=== PATIENT | female | born 1940 | race Caucasian/White ===

== ENCOUNTER 2016-11-27 15:16 | Emergency (ER) | payer OTHER ==
[~2016-11-27] VITALS: Ht 152.4 cm; Wt 63.5 kg
[~2016-11-27 15:16] MED LIST: PAR20T PO; TETR12.5 PO
[2016-11-27] MEDS ORDERED: SODIUM CHLORIDE 0.9% 500 ML IVB ONE (15:43)
[2016-11-27] MEDS ORDERED: LORazepam 2MG/ML-1ML VIAL IV ONE ×2 (16:15→23:30)
[2016-11-27 16:31] LABS: Basophils # (auto) 0.1 uL; DEFINITIVE VIEW TRANSMISSION; Eosinophils # (auto) 0.6 uL
[2016-11-27 16:37] LABS: Basophils % (auto) 0.5 % (0.0-2.0); Eosinophils % (auto) 3.6 % (0.0-7.0); Hematocrit 41.9 % (36.0-46.0); Hemoglobin 13.3 g/dL (12.2-16.2); Lymphocytes % (auto) 12.5 % (10.0-50.0); Mean Corpuscular Hgb Conc. 31.7 g/dL (32.0-36.0); Mean Corpuscular Volume 91.4 fL (80.0-100.0); Mean Platelet Volume 8.1 fL (7.4-10.4); Monocytes # (auto) 1.4 uL; Monocytes % (auto) 9.1 % (0.0-12.0); Neutrophils # (auto) 11.7 uL; Neutrophils % (auto) 74.3 % (37.0-80.0); Red Cell Distribution Width 13.9 % (11.6-16.0); White Blood Cell 15.8 10^3/uL (4.4-10.8)
[2016-11-27 16:45] LABS: INR 1.05 (0.9-1.15); Partial Thromboplastin Time 29.3 sec (22.64-33.71); Prothrombin Time 10.8 sec (9.37-12.3)
[2016-11-27 16:49] LABS: Platelet Count (auto) 808 10^3/uL (140-450)
[2016-11-27 16:56] LABS: Albumin 3.1 g/dL (3.4-5.0); BUN/Creatinine Ratio 29.6; Bilirubin, Total 0.4 mg/dL (0.2-1.0); Calcium 9.1 mg/dL (8.5-10.1); Magnesium 2.6 mg/dL (1.6-2.6); Potassium 4.1 mmol/L (3.5-5.1); Total Protein 8.4 g/dL (6.4-8.2)
[2016-11-27] MEDS ORDERED: cefTRIAXone 1GM/50ML D5W 50 ML IV ONE ×2 (17:40→17:45)
[2016-11-27] MEDS ORDERED: AZITHROMYCIN 500MG/D5W 250ML 250 ML IV ONE (17:45)
[2016-11-27 17:49] LABS: Platelet Estimate Markedly Increased
[2016-11-27 18:08] LABS: Urine Bilirubin Negative (Negative); Urine Blood Negative /uL (Negative); Urine Color Yellow (Yellow); Urine Glucose Normal (Normal); Urine Ketone Negative (Negative); Urine Mucus FEW (None Seen); Urine RBC <1 /hpf (0 - 4); Urine Squamous Epithelial Cell FEW /hpf (<5); Urine pH 5.5 (5.0-8.0)
[2016-11-27 18:13] LABS: Urine Nitrite POSITIVE (Negative)
[2016-11-28 01:05] VITALS: BP 116/79
== END 2016-11-28 01:48 | disposition short-term general hospital (02) ==
LOC: EDUNIT# 15:16 → EDBD 15:16 → ER 15:22
DX: I62.00 Nontraumatic subdural hemorrhage, unspecified (principal); J18.9 Pneumonia, unspecified organism; N39.0 Urinary tract infection, site not specified; D47.3 Essential (hemorrhagic) thrombocythemia; R94.5 Abnormal results of liver function studies; Z98.890 Other specified postprocedural states
CPT/HCPCS: 36415; 70450; 71010; 80053; 81001; 82962; 83605; 83735; 84484; 85025; 85610; 85730; 87040; 87086; 87088; 87186; 93005; 94761; 96374; 99285; J0456; J0696; J2060; J7040

== ENCOUNTER 2017-02-02 23:12 | Inpatient (IN) | payer OTHER ==
[~2017-02-02] VITALS: Ht 152.4 cm; Wt 44.9 kg
[2017-02-03] VITALS (7 sets, daily range): BP systolic 84–115; BP diastolic 51–57
[2017-02-03] LABS: Basophils # (auto) 0.2 uL; Basophils % (auto) 1.2 % (0.0-2.0); Eosinophils # (auto) 0.2 uL; Eosinophils % (auto) 1.7 % (0.0-7.0); Hematocrit 37.8 % (36.0-46.0); Hemoglobin 12.8 g/dL (12.2-16.2); Lymphocytes # (auto) 2.6 uL; Lymphocytes % (auto) 18.4 % (10.0-50.0); Mean Corpuscular Hemoglobin 29.9 pg (28.0-32.0); Mean Corpuscular Hgb Conc. 33.7 g/dL (32.0-36.0); Mean Corpuscular Volume 88.6 fL (80.0-100.0); Mean Platelet Volume 7.9 fL (7.4-10.4); Monocytes # (auto) 0.8 uL; Monocytes % (auto) 5.6 % (0.0-12.0); Neutrophils # (auto) 10.6 uL; Neutrophils % (auto) 73.1 % (37.0-80.0); Platelet Count (auto) 397 10^3/uL (140-450); Red Cell Distribution Width 13.6 % (11.6-16.0); SUSPECT VIEW TRANSMISSION; White Blood Cell 14.4 10^3/uL (4.4-10.8)
[2017-02-03 00:16] LABS: Anion Gap 8 (5-15); BUN/Creatinine Ratio 11.5; Blood Urea Nitrogen 10 mg/dL (7-18); Calcium 8.3 mg/dL (8.5-10.1); Carbon Dioxide 28 mmol/L (21-32); Chloride 108 mmol/L (98-107); GFR African American 82 mL/min; GFR Non-African American 68 mL/min; Glucose 99 mg/dL (74-106); Sodium 144 mmol/L (136-145)
[2017-02-03 02:14] LABS: B-Type Natriuretic Peptide 12.1 pg/mL (0-100)
[2017-02-03 03:04] LABS: Urine RBC None Seen /hpf (0 - 4)
[2017-02-03 03:13] LABS: Urine Bilirubin Negative (Negative); Urine Blood Negative /uL (Negative); Urine Color Yellow (Yellow); Urine Glucose Normal (Normal); Urine Ketone Negative (Negative); Urine Nitrite Negative (Negative); Urine Urobilinogen Normal (Negative); Urine pH 6.5 (5.0-8.0)
[2017-02-03] MEDS ORDERED: LEVOFLOXACIN 750MG 150 ML IV ONE (04:45)
[2017-02-03] MEDS ORDERED: ALBUTEROL SULF 2.5 MG/0.5ML(0.5%) NEB SOLN NEB ONE (04:45)
[2017-02-03] MEDS ORDERED: IPRATROPIUM BROM 0.5 MG/2.5ML INH SOL NEB ONE (04:45)
[2017-02-03] MEDS ORDERED: SODIUM CHLORIDE 0.9% 250 ML IV ONE (06:15)
[2017-02-03] MEDS: SODIUM CHLORIDE 0.9% 1,000 ML IV SCH ×2 (07:13→21:20)
[2017-02-03] MEDS ORDERED: ACETAMINOPHEN 500 MG TAB PO PRN (07:15)
[2017-02-03] MEDS ORDERED: LORazepam 2MG/ML-1ML VIAL IV PRN (07:15)
[2017-02-03] MEDS ORDERED: NITROGLYCERIN 0.4 MG SL TAB SL PRN (07:15)
[2017-02-03] MEDS ORDERED: HYDROcodone-ACET 5/325MG TAB PO PRN (07:15)
[2017-02-03] MEDS ORDERED: PROCHLORPERAZINE EDISYLATE 5 MG/ML 2ML VIAL IV PRN (07:15)
[2017-02-03] MEDS ORDERED: MORPHINE SULF INJ 2 MG/ML SYRINGE 1ML IV PRN ×2 (07:15)
[2017-02-03] MEDS ORDERED: LACTULOSE 20Gm/30ML SOLN PO PRN (07:15)
[2017-02-03] MEDS ORDERED: ALBUTEROL SULF 2.5 MG/0.5ML(0.5%) NEB SOLN NEB PRN (07:15)
[2017-02-03] MEDS: methylPREDNISolone SOD SUCC 40 MG/ML VL IV SCH ×3 (07:58→20:22)
[2017-02-03] MEDS: IPRATROPIUM BROM 0.5 MG/2.5ML INH SOL NEB SCH ×2 (10:53→18:00)
[2017-02-03] MEDS: ALBUTEROL SULF 2.5 MG/0.5ML(0.5%) NEB SOLN NEB SCH ×2 (10:53→18:00)
[2017-02-03] MEDS: PARoxetine 20 MG TAB PO SCH (10:54)
[2017-02-03] MEDS: ENOXAPARIN SOD 40 MG/0.4 ML SYRINGE SC SCH (10:54)
[2017-02-03] MEDS ORDERED: PNEUMOCOCCAL VACC POLYS 25 MCG/0.5 ML VIAL IM ONE (17:45)
[2017-02-03] MEDS ORDERED: TETRABENAZINE 12.5 MG PO SCH (22:00)
[2017-02-04] MEDS: methylPREDNISolone SOD SUCC 40 MG/ML VL IV SCH ×4 (02:00→20:55)
[2017-02-04] MEDS: LEVOFLOXACIN 500MG 100 ML IV SCH (05:17)
[2017-02-04 05:52] LABS: Basophils # (auto) 0 uL; Basophils % (auto) 0.3 % (0.0-2.0); Eosinophils # (auto) 0 uL; Eosinophils % (auto) 0.1 % (0.0-7.0); Hemoglobin 10.8 g/dL (12.2-16.2); Lymphocytes # (auto) 2.4 uL; Lymphocytes % (auto) 16.6 % (10.0-50.0); Mean Corpuscular Hemoglobin 29.5 pg (28.0-32.0); Mean Corpuscular Hgb Conc. 32.8 g/dL (32.0-36.0); Mean Corpuscular Volume 90.1 fL (80.0-100.0); Mean Platelet Volume 8.3 fL (7.4-10.4); Monocytes # (auto) 1.1 uL; Monocytes % (auto) 7.4 % (0.0-12.0); Neutrophils % (auto) 75.6 % (37.0-80.0); Platelet Count (auto) 369 10^3/uL (140-450); Red Cell Distribution Width 14.2 % (11.6-16.0); White Blood Cell 14.6 10^3/uL (4.4-10.8)
[2017-02-04 05:59] VITALS: BP 108/55
[2017-02-04] MEDS ORDERED: TETRABENAZINE 12.5 MG PO SCH (07:00)
[2017-02-04] MEDS: ALBUTEROL SULF 2.5 MG/0.5ML(0.5%) NEB SOLN NEB SCH ×4 (07:09→19:13)
[2017-02-04] MEDS: IPRATROPIUM BROM 0.5 MG/2.5ML INH SOL NEB SCH ×4 (07:10→19:13)
[2017-02-04 08:00] VITALS: BP 108/55
[2017-02-04 09:00] VITALS: BP 97/50
[2017-02-04] MEDS: SODIUM CHLORIDE 0.9% 1,000 ML IV SCH ×2 (09:47→23:15)
[2017-02-04] MEDS: ENOXAPARIN SOD 40 MG/0.4 ML SYRINGE SC SCH (10:09)
[2017-02-04] MEDS: PARoxetine 20 MG TAB PO SCH (10:09)
[2017-02-04] MEDS ORDERED: SODIUM CHLORIDE 0.9% 2,000 ML IV ONE (12:15)
[2017-02-04 15:30] VITALS: BP 72/44
[2017-02-04 18:11] LABS: Basophils # (auto) 0 uL; Basophils % (auto) 0.1 % (0.0-2.0); Eosinophils # (auto) 0 uL; Hematocrit 34.5 % (36.0-46.0); Hemoglobin 11.3 g/dL (12.2-16.2); Lymphocytes % (auto) 8.3 % (10.0-50.0); Mean Corpuscular Hemoglobin 29.5 pg (28.0-32.0); Mean Corpuscular Hgb Conc. 32.6 g/dL (32.0-36.0); Mean Corpuscular Volume 90.6 fL (80.0-100.0); Mean Platelet Volume 8.2 fL (7.4-10.4); Monocytes # (auto) 0.2 uL; Monocytes % (auto) 1.9 % (0.0-12.0); Neutrophils # (auto) 10.9 uL; Neutrophils % (auto) 89.7 % (37.0-80.0); Platelet Count (auto) 379 10^3/uL (140-450); Red Cell Distribution Width 14.3 % (11.6-16.0); White Blood Cell 12.1 10^3/uL (4.4-10.8)
[2017-02-04 18:16] VITALS: BP_SYST 46
[2017-02-04 18:35] LABS: Albumin 2.4 g/dL (3.4-5.0); BUN/Creatinine Ratio 7.8; Calcium 7.9 mg/dL (8.5-10.1); Potassium 3.9 mmol/L (3.5-5.1)
[2017-02-04 18:44] LABS: Bilirubin, Total 0.1 mg/dL (0.2-1.0); Total Protein 5.8 g/dL (6.4-8.2)
[2017-02-04 22:00] VITALS: BP 87/38
[2017-02-05] MEDS: IPRATROPIUM BROM 0.5 MG/2.5ML INH SOL NEB SCH ×4 (00:56→18:37)
[2017-02-05] MEDS: ALBUTEROL SULF 2.5 MG/0.5ML(0.5%) NEB SOLN NEB SCH ×4 (00:56→18:37)
[2017-02-05] MEDS: methylPREDNISolone SOD SUCC 40 MG/ML VL IV SCH ×4 (01:54→20:23)
[2017-02-05] MEDS: LEVOFLOXACIN 500MG 100 ML IV SCH (04:35)
[2017-02-05 05:00] VITALS: BP 136/65
[2017-02-05 09:45] VITALS: BP_SYST 69; BP_SYST 91; BP_DIAS 38; BP_DIAS 53
[2017-02-05] MEDS: PARoxetine 20 MG TAB PO SCH (10:17)
[2017-02-05] MEDS: ENOXAPARIN SOD 40 MG/0.4 ML SYRINGE SC SCH (10:18)
[2017-02-05] MEDS ORDERED: DEXTROSE (50%) 50ML SYRG IV PRN (11:45)
[2017-02-05] MEDS: MUPIROCIN 2% OINT 22GM EACHNOSTRI SCH ×2 (11:50→22:22)
[2017-02-05] MEDS: Boost Glucose Control 8 Ounces PO SCH ×3 (12:00→22:23)
[2017-02-05] MEDS: SODIUM CHLORIDE 0.9% 1,000 ML IV SCH (12:33)
[2017-02-05 13:38] VITALS: BP 106/57
[2017-02-05 16:43] VITALS: BP 119/52
[2017-02-05] MEDS: InsuLIN REG 1unit/0.01ml Soln (100units/ml) SC SCH ×2 (17:00→22:00)
[2017-02-05] MEDS: ACCU-CHEK COMFORT CURVE STRIP VI SCH ×2 (17:16→22:23)
[2017-02-05 21:15] VITALS: BP 110/59
[2017-02-06] VITALS (7 sets, daily range): BP systolic 103–141; BP diastolic 55–77
[2017-02-06] MEDS: SODIUM CHLORIDE 0.9% 1,000 ML IV SCH ×2 (01:53→16:33)
[2017-02-06] MEDS: methylPREDNISolone SOD SUCC 40 MG/ML VL IV SCH ×4 (02:11→20:29)
[2017-02-06] MEDS: LEVOFLOXACIN 500MG 100 ML IV SCH (05:03)
[2017-02-06 06:05] LABS: Basophils # (auto) 0 uL; Eosinophils # (auto) 0 uL; Hemoglobin 11.6 g/dL (12.2-16.2); Lymphocytes # (auto) 0.7 uL; Lymphocytes % (auto) 5.7 % (10.0-50.0); Mean Corpuscular Hemoglobin 29.5 pg (28.0-32.0); Mean Corpuscular Hgb Conc. 33.1 g/dL (32.0-36.0); Mean Corpuscular Volume 88.9 fL (80.0-100.0); Monocytes # (auto) 0.2 uL; Monocytes % (auto) 1.7 % (0.0-12.0); Neutrophils # (auto) 12.1 uL; Neutrophils % (auto) 92.6 % (37.0-80.0); Platelet Count (auto) 408 10^3/uL (140-450); Red Cell Distribution Width 14.3 % (11.6-16.0); White Blood Cell 13.1 10^3/uL (4.4-10.8)
[2017-02-06] MEDS: ALBUTEROL SULF 2.5 MG/0.5ML(0.5%) NEB SOLN NEB SCH ×4 (06:11→18:42)
[2017-02-06] MEDS: IPRATROPIUM BROM 0.5 MG/2.5ML INH SOL NEB SCH ×4 (06:11→18:42)
[2017-02-06] MEDS: Boost Glucose Control 8 Ounces PO SCH ×4 (06:30→22:33)
[2017-02-06] MEDS: InsuLIN REG 1unit/0.01ml Soln (100units/ml) SC SCH ×4 (06:30→22:34)
[2017-02-06] MEDS: ACCU-CHEK COMFORT CURVE STRIP VI SCH ×4 (06:30→22:33)
[2017-02-06 06:46] LABS: Albumin 2.6 g/dL (3.4-5.0); BUN/Creatinine Ratio 8.2; Bilirubin, Total 0.2 mg/dL (0.2-1.0); Calcium 8.4 mg/dL (8.5-10.1); Total Protein 6.1 g/dL (6.4-8.2)
[2017-02-06] MEDS: PARoxetine 20 MG TAB PO SCH (10:01)
[2017-02-06] MEDS: MUPIROCIN 2% OINT 22GM EACHNOSTRI SCH ×2 (10:16→22:33)
[2017-02-06] MEDS: ENOXAPARIN SOD 40 MG/0.4 ML SYRINGE SC SCH (10:16)
[2017-02-06] MEDS: DOXYCYCLINE HYC 100MG/250ML 250 ML IV SCH (16:29)
[2017-02-07] MEDS: ALBUTEROL SULF 2.5 MG/0.5ML(0.5%) NEB SOLN NEB SCH ×4 (00:35→18:44)
[2017-02-07] MEDS: IPRATROPIUM BROM 0.5 MG/2.5ML INH SOL NEB SCH ×4 (00:35→18:44)
[2017-02-07] MEDS: DOXYCYCLINE HYC 100MG/250ML 250 ML IV SCH ×2 (03:30→13:47)
[2017-02-07] MEDS: methylPREDNISolone SOD SUCC 40 MG/ML VL IV SCH ×4 (03:30→21:19)
[2017-02-07] MEDS: SODIUM CHLORIDE 0.9% 1,000 ML IV SCH ×2 (04:33→17:16)
[2017-02-07 05:00] VITALS: BP 142/69
[2017-02-07] MEDS: Boost Glucose Control 8 Ounces PO SCH ×4 (06:00→22:00)
[2017-02-07 06:15] LABS: Basophils # (auto) 0 uL; Eosinophils # (auto) 0 uL; Hematocrit 34.6 % (36.0-46.0); Hemoglobin 11.4 g/dL (12.2-16.2); Lymphocytes # (auto) 0.8 uL; Lymphocytes % (auto) 6.6 % (10.0-50.0); Mean Corpuscular Hemoglobin 29.6 pg (28.0-32.0); Mean Corpuscular Volume 89.8 fL (80.0-100.0); Mean Platelet Volume 8.5 fL (7.4-10.4); Monocytes # (auto) 0.6 uL; Monocytes % (auto) 4.7 % (0.0-12.0); Neutrophils % (auto) 88.7 % (37.0-80.0); Platelet Count (auto) 393 10^3/uL (140-450); Red Cell Distribution Width 14.6 % (11.6-16.0); White Blood Cell 12.4 10^3/uL (4.4-10.8)
[2017-02-07 06:31] LABS: Potassium 3.7 mmol/L (3.5-5.1)
[2017-02-07 06:38] LABS: Albumin 2.5 g/dL (3.4-5.0); BUN/Creatinine Ratio 16.9; Calcium 8.2 mg/dL (8.5-10.1)
[2017-02-07] MEDS: InsuLIN REG 1unit/0.01ml Soln (100units/ml) SC SCH ×4 (06:39→22:00)
[2017-02-07] MEDS: ACCU-CHEK COMFORT CURVE STRIP VI SCH ×4 (06:39→22:00)
[2017-02-07 06:41] LABS: Bilirubin, Total 0.2 mg/dL (0.2-1.0); Total Protein 5.9 g/dL (6.4-8.2)
[2017-02-07 07:30] VITALS: BP 108/55
[2017-02-07 07:42] VITALS: BP 101/59
[2017-02-07] MEDS: ENOXAPARIN SOD 40 MG/0.4 ML SYRINGE SC SCH (09:42)
[2017-02-07] MEDS: PARoxetine 20 MG TAB PO SCH (09:42)
[2017-02-07] MEDS: MUPIROCIN 2% OINT 22GM EACHNOSTRI SCH ×2 (09:43→21:40)
[2017-02-07 10:00] VITALS: BP 103/61
[2017-02-07 17:17] VITALS: BP 147/73
[2017-02-07 21:37] VITALS: BP 100/54
[2017-02-07] MEDS ORDERED: TETRABENAZINE 25 MG PO SCH (22:00)
[2017-02-08] MEDS: IPRATROPIUM BROM 0.5 MG/2.5ML INH SOL NEB SCH ×3 (00:45→11:43)
[2017-02-08] MEDS: ALBUTEROL SULF 2.5 MG/0.5ML(0.5%) NEB SOLN NEB SCH ×3 (00:45→11:43)
[2017-02-08] MEDS: methylPREDNISolone SOD SUCC 40 MG/ML VL IV SCH ×2 (02:03→07:50)
[2017-02-08] MEDS: DOXYCYCLINE HYC 100MG/250ML 250 ML IV SCH (03:16)
[2017-02-08 04:22] VITALS: BP 127/69
[2017-02-08 05:52] LABS: Basophils # (auto) 0 uL; Eosinophils # (auto) 0 uL; Hematocrit 33.9 % (36.0-46.0); Hemoglobin 11.2 g/dL (12.2-16.2); Lymphocytes # (auto) 0.6 uL; Mean Corpuscular Hemoglobin 29.5 pg (28.0-32.0); Mean Corpuscular Hgb Conc. 32.9 g/dL (32.0-36.0); Mean Corpuscular Volume 89.7 fL (80.0-100.0); Mean Platelet Volume 8.7 fL (7.4-10.4); Monocytes # (auto) 0.2 uL; Neutrophils # (auto) 7.2 uL; Platelet Count (auto) 399 10^3/uL (140-450); Red Cell Distribution Width 14.5 % (11.6-16.0); White Blood Cell 8.1 10^3/uL (4.4-10.8)
[2017-02-08] MEDS: Boost Glucose Control 8 Ounces PO SCH ×2 (06:00→13:02)
[2017-02-08 06:17] LABS: Albumin 2.4 g/dL (3.4-5.0); BUN/Creatinine Ratio 21.1; Bilirubin, Total 0.2 mg/dL (0.2-1.0); Calcium 8.2 mg/dL (8.5-10.1); Potassium 4.3 mmol/L (3.5-5.1); Total Protein 5.5 g/dL (6.4-8.2)
[2017-02-08] MEDS: ACCU-CHEK COMFORT CURVE STRIP VI SCH ×2 (06:36→13:02)
[2017-02-08] MEDS: InsuLIN REG 1unit/0.01ml Soln (100units/ml) SC SCH ×2 (06:37→13:02)
[2017-02-08] MEDS: SODIUM CHLORIDE 0.9% 1,000 ML IV SCH (07:31)
[2017-02-08 09:00] VITALS: BP 116/68
[2017-02-08] MEDS: PARoxetine 20 MG TAB PO SCH ×2 (10:00→10:13)
[2017-02-08] MEDS: MUPIROCIN 2% OINT 22GM EACHNOSTRI SCH (10:13)
[2017-02-08 10:22] VITALS: BP 116/68
[2017-02-08 10:31] VITALS: BP 116/68
== END 2017-02-08 14:10 | disposition home or self-care (01) | DRG 190 ==
LOC: ER 23:12 → TELE 23:13 → TELE-WESTW 02-03 10:12
PROVIDERS: ADMIT Internal Medicine; ATTEND Internal Medicine
PROC: 3E0234Z Introduction of Serum, Toxoid and Vaccine into Muscle, Percutaneous Approach (ICD-10-PCS; principal; 2017-02-03)
DX: J44.0 Chronic obstructive pulmonary disease with (acute) lower respiratory infection (principal); E43 Unspecified severe protein-calorie malnutrition; R47.01 Aphasia; G10 Huntington's disease; Z68.1 Body mass index [BMI] 19.9 or less, adult; J44.1 Chronic obstructive pulmonary disease with (acute) exacerbation; J20.9 Acute bronchitis, unspecified; Z77.22 Contact with and (suspected) exposure to environmental tobacco smoke (acute) (chronic); I95.2 Hypotension due to drugs; E74.39 Other disorders of intestinal carbohydrate absorption; J45.909 Unspecified asthma, uncomplicated; N18.2 Chronic kidney disease, stage 2 (mild); E86.0 Dehydration; Z88.1 Allergy status to other antibiotic agents; Z82.0 Family history of epilepsy and other diseases of the nervous system; Z87.440 Personal history of urinary (tract) infections; Z23 Encounter for immunization; Z91.81 History of falling
CPT/HCPCS: 36415; 51702; 71010; 80048; 80053; 81001; 82962; 83036; 83605; 83880; 84484; 85025; 87040; 87081; 87400; 92610; 93005; 94640; 96374; 97110; 97116; 97530; J1956; J3490

== ENCOUNTER 2017-08-21 14:52 | Inpatient (IN) | payer OTHER ==
[~2017-08-21] VITALS: Ht 152.4 cm; Wt 36.2 kg
[2017-08-21] MEDS ORDERED: SODIUM CHLORIDE 0.9% 1,000 ML IV ONE (19:00)
[2017-08-21 19:11] LABS: Albumin 2.6 g/dL (3.4-5.0); Calcium 8.2 mg/dL (8.5-10.1); Magnesium 2.2 mg/dL (1.6-2.6)
[2017-08-21 19:14] LABS: Bilirubin, Total 0.3 mg/dL (0.2-1.0); Total Protein 6.1 g/dL (6.4-8.2)
[2017-08-21 19:29] LABS: Basophils # (auto) 0 uL; Basophils % (auto) 0.5 % (0.0-2.0); Eosinophils # (auto) 0.1 uL; Eosinophils % (auto) 1.5 % (0.0-7.0); Hematocrit 41.1 % (36.0-46.0); Hemoglobin 13.7 g/dL (12.2-16.2); Lymphocytes # (auto) 3.6 uL; Lymphocytes % (auto) 40.1 % (10.0-50.0); Mean Corpuscular Hemoglobin 30.1 pg (28.0-32.0); Mean Corpuscular Hgb Conc. 33.5 g/dL (32.0-36.0); Mean Corpuscular Volume 89.9 fL (80.0-100.0); Mean Platelet Volume 8.1 fL (6.9-10.8); Monocytes # (auto) 0.8 uL; Neutrophils # (auto) 4.4 uL; Neutrophils % (auto) 48.9 % (37.0-80.0); Nucleated Red Blood Cells % 0.3 %; Platelet Count (auto) 286 10^3/uL (140-450); Red Cell Distribution Width 13.7 % (11.8-14.3)
[2017-08-21 19:38] LABS: INR 0.94 (0.9-1.15); Partial Thromboplastin Time 26.7 sec (22.64-33.71); Prothrombin Time 10.3 sec (9.37-12.3)
[2017-08-21] MEDS ORDERED: PPN PER PHARMACY 0 ML IV SCH (21:30)
[2017-08-21] MEDS ORDERED: ONDANSETRON HCL 4 MG/2 ML VIAL IV PRN (21:30)
[2017-08-21] MEDS ORDERED: AMINO ACID INFUSION IN D10W 1,000 ML IV NR (22:30)
[2017-08-21] MEDS ORDERED: DEXTROSE (50%) 50ML SYRG IV SCH (22:30)
[2017-08-21 23:03] VITALS: BP 95/64
[2017-08-21 23:15] VITALS: BP 95/64
[2017-08-22] MEDS: ACCU-CHEK COMFORT CURVE STRIP VI SCH ×4 (00:02→17:04)
[2017-08-22 05:00] VITALS: BP 104/86
[2017-08-22] MEDS: InsuLIN REG 1unit/0.01ml Soln (100units/ml) SC SCH ×4 (05:51→17:04)
[2017-08-22 06:24] LABS: Basophils # (auto) 0 uL; Basophils % (auto) 0.5 % (0.0-2.0); Eosinophils # (auto) 0.2 uL; Eosinophils % (auto) 2.7 % (0.0-7.0); Hematocrit 39.8 % (36.0-46.0); Hemoglobin 13.4 g/dL (12.2-16.2); Lymphocytes # (auto) 3.8 uL; Lymphocytes % (auto) 42.9 % (10.0-50.0); Mean Corpuscular Hemoglobin 30.6 pg (28.0-32.0); Mean Corpuscular Hgb Conc. 33.8 g/dL (32.0-36.0); Mean Corpuscular Volume 90.6 fL (80.0-100.0); Mean Platelet Volume 7.9 fL (6.9-10.8); Monocytes # (auto) 0.8 uL; Monocytes % (auto) 9.3 % (0.0-12.0); Neutrophils # (auto) 3.9 uL; Neutrophils % (auto) 44.6 % (37.0-80.0); Nucleated Red Blood Cells % 0.1 %; Platelet Count (auto) 321 10^3/uL (140-450); Red Cell Distribution Width 13.8 % (11.8-14.3); White Blood Cell 8.8 10^3/uL (4.4-10.8)
[2017-08-22 06:38] LABS: Albumin 2.5 g/dL (3.4-5.0); Calcium 8.4 mg/dL (8.5-10.1); Magnesium 2.3 mg/dL (1.6-2.6); Potassium 3.6 mmol/L (3.5-5.1)
[2017-08-22 06:40] LABS: BUN/Creatinine Ratio 16.7
[2017-08-22 06:43] LABS: Bilirubin, Total 0.3 mg/dL (0.2-1.0); Phosphorus 2.8 mg/dL (2.5-4.90)
[2017-08-22 08:39] VITALS: BP 100/63
[2017-08-22] MEDS: ENOXAPARIN SOD 30 MG/0.3 ML SYRINGE SC SCH (11:03)
[2017-08-22] MEDS: PANTOPRAZOLE 40 MG/10 ML VIAL IV SCH (11:03)
[2017-08-22 13:06] VITALS: BP 99/62
[2017-08-22] MEDS: SODIUM CHLORIDE 0.9% 1,000 ML IV SCH (14:15)
[2017-08-22 16:54] VITALS: BP 98/61
[2017-08-22] MEDS ORDERED: PPN PER PHARMACY IV NR ×8 (20:00)
[2017-08-22 22:00] VITALS: BP 107/75
[2017-08-23 05:00] VITALS: BP 110/52
[2017-08-23] MEDS: InsuLIN REG 1unit/0.01ml Soln (100units/ml) SC SCH ×4 (05:56→18:00)
[2017-08-23] MEDS: ACCU-CHEK COMFORT CURVE STRIP VI SCH ×4 (05:56→18:13)
[2017-08-23 06:48] LABS: Albumin 2.7 g/dL (3.4-5.0); BUN/Creatinine Ratio 28.6; Bilirubin, Total 0.2 mg/dL (0.2-1.0); Calcium 8.2 mg/dL (8.5-10.1); Magnesium 1.9 mg/dL (1.6-2.6); Phosphorus 2.6 mg/dL (2.5-4.90); Potassium 3.4 mmol/L (3.5-5.1); Total Protein 6.3 g/dL (6.4-8.2)
[2017-08-23] MEDS ORDERED: NALOXONE HCL 0.4 MG/ML VIAL ONE (09:10)
[2017-08-23] MEDS ORDERED: FLUMAZENIL 0.1 MG/ML INJ 10ML MDV IV ONE (09:10)
[2017-08-23] MEDS ORDERED: SODIUM CHLORIDE LOCK 10 ML ONE (09:10)
[2017-08-23] MEDS ORDERED: MIDAZOLAM HCL 5 MG/ML-1ML VIAL ONE (09:10)
[2017-08-23] MEDS ORDERED: LIDOCAINE VISCOUS 2% 15ML UD ONE (09:10)
[2017-08-23] MEDS ORDERED: diphenhdrAMINE HCL 50 MG/1 ML VL ONE (09:11)
[2017-08-23 09:12] VITALS: BP 114/74
[2017-08-23] MEDS: PANTOPRAZOLE 40 MG/10 ML VIAL IV SCH (09:37)
[2017-08-23] MEDS: ENOXAPARIN SOD 30 MG/0.3 ML SYRINGE SC SCH (09:37)
[2017-08-23] MEDS ORDERED: POTASSIUM PHOSP 22MEQ(15MMOLE) in NS 100 ML IV ONE (10:15)
[2017-08-23] MEDS ORDERED: POTASSIUM CHL 20MEQ/100ML 100 ML IV ONE (11:30)
[2017-08-23] MEDS ORDERED: MAGNESIUM SULFATE 1GM/100ML 100 ML IV ONE (11:30)
[2017-08-23] MEDS: fentaNYL CITRATE 100 MCG/2 ML VL ONE ×2 (11:57→12:01)
[2017-08-23] MEDS ORDERED: ceFAZolin 1GM/50ML 50 ML IV ONE (12:10)
[2017-08-23] MEDS: SODIUM CHLORIDE 0.9% 1,000 ML IV SCH (16:10)
[2017-08-23 16:54] VITALS: BP 98/58
[2017-08-23] MEDS ORDERED: PPN PER PHARMACY IV NR ×10 (20:00)
[2017-08-23 22:58] VITALS: BP 105/71
[2017-08-24 05:06] VITALS: BP 109/57
[2017-08-24] MEDS: InsuLIN REG 1unit/0.01ml Soln (100units/ml) SC SCH ×3 (06:00→12:00)
[2017-08-24] MEDS: ACCU-CHEK COMFORT CURVE STRIP VI SCH ×3 (06:00→12:00)
[2017-08-24] MEDS: SODIUM CHLORIDE 0.9% 1,000 ML IV SCH (06:15)
[2017-08-24 07:36] LABS: Basophils # (auto) 0.1 uL; Basophils % (auto) 0.5 % (0.0-2.0); Eosinophils # (auto) 0.2 uL; Hematocrit 38.7 % (36.0-46.0); Hemoglobin 12.8 g/dL (12.2-16.2); Lymphocytes # (auto) 2.8 uL; Lymphocytes % (auto) 23.1 % (10.0-50.0); Mean Corpuscular Hemoglobin 30.2 pg (28.0-32.0); Mean Corpuscular Volume 91.4 fL (80.0-100.0); Mean Platelet Volume 7.8 fL (6.9-10.8); Monocytes # (auto) 1.1 uL; Monocytes % (auto) 8.6 % (0.0-12.0); Neutrophils # (auto) 8.1 uL; Neutrophils % (auto) 65.8 % (37.0-80.0); Nucleated Red Blood Cells % 1.5 %; Platelet Count (auto) 302 10^3/uL (140-450); Red Cell Distribution Width 13.7 % (11.8-14.3); White Blood Cell 12.3 10^3/uL (4.4-10.8)
[2017-08-24 07:57] LABS: Albumin 2.4 g/dL (3.4-5.0); BUN/Creatinine Ratio 25.6; Bilirubin, Total 0.2 mg/dL (0.2-1.0); Calcium 8.2 mg/dL (8.5-10.1); Magnesium 2.6 mg/dL (1.6-2.6); Phosphorus 2.9 mg/dL (2.5-4.90); Potassium 4.2 mmol/L (3.5-5.1)
[2017-08-24 09:00] VITALS: BP 104/79
[2017-08-24] MEDS: PANTOPRAZOLE 40 MG/10 ML VIAL IV SCH (10:38)
[2017-08-24] MEDS: ENOXAPARIN SOD 30 MG/0.3 ML SYRINGE SC SCH (10:38)
[2017-08-24] MEDS ORDERED: Isosource 1.5 Cal 1 Liter GT SCH (12:30)
[2017-08-24 13:00] VITALS: BP 115/58
[2017-08-24 17:11] VITALS: BP 100/55
[2017-08-24 17:49] LABS: Urine Bilirubin Negative (Negative); Urine Blood Negative /uL (Negative); Urine Color Yellow (Yellow); Urine Glucose Normal (Normal); Urine Ketone Negative (Negative); Urine Mucus FEW (None Seen); Urine Nitrite Negative (Negative); Urine RBC 4 /hpf (0 - 4); Urine Squamous Epithelial Cell FEW /hpf (<5); Urine Urobilinogen Normal (Negative); Urine pH 6.5 (5.0-8.0)
[2017-08-24] MEDS ORDERED: PPN PER PHARMACY IV NR ×10 (20:00)
[2017-08-24 22:27] VITALS: BP 95/53
[2017-08-25] MEDS: SODIUM CHLORIDE 0.9% 1,000 ML IV SCH (02:52)
[2017-08-25 04:00] VITALS: BP 87/38
[2017-08-25 04:48] VITALS: BP 87/38
[2017-08-25 07:35] LABS: Basophils # (auto) 0 uL; Basophils % (auto) 0.4 % (0.0-2.0); Eosinophils # (auto) 0.2 uL; Eosinophils % (auto) 1.8 % (0.0-7.0); Hemoglobin 12.3 g/dL (12.2-16.2); Lymphocytes # (auto) 2.7 uL; Lymphocytes % (auto) 23.2 % (10.0-50.0); Mean Corpuscular Hemoglobin 29.8 pg (28.0-32.0); Mean Corpuscular Hgb Conc. 33.2 g/dL (32.0-36.0); Mean Corpuscular Volume 89.9 fL (80.0-100.0); Mean Platelet Volume 8.3 fL (6.9-10.8); Monocytes # (auto) 1.3 uL; Neutrophils # (auto) 7.5 uL; Neutrophils % (auto) 63.6 % (37.0-80.0); Platelet Count (auto) 310 10^3/uL (140-450); Red Cell Distribution Width 13.4 % (11.8-14.3); White Blood Cell 11.8 10^3/uL (4.4-10.8)
[2017-08-25 08:00] VITALS: BP 84/40
[2017-08-25 08:03] LABS: Albumin 2.4 g/dL (3.4-5.0); BUN/Creatinine Ratio 20.9; Bilirubin, Total 0.2 mg/dL (0.2-1.0); Calcium 8.2 mg/dL (8.5-10.1); Potassium 4.2 mmol/L (3.5-5.1); Total Protein 5.8 g/dL (6.4-8.2)
[2017-08-25 08:13] VITALS: BP 84/40
[2017-08-25] MEDS: PANTOPRAZOLE 40 MG/10 ML VIAL IV SCH (09:00)
[2017-08-25] MEDS: ENOXAPARIN SOD 30 MG/0.3 ML SYRINGE SC SCH (09:00)
[2017-08-25] MEDS ORDERED: SODIUM CHLORIDE 0.9% 1,000 ML IV SCH (10:43)
[2017-08-25] MEDS ORDERED: NITR-48 PO (11:55)
[2017-08-25] MEDS ORDERED: LEVOFLOXACIN 500MG 100 ML IV ONE (12:00)
[2017-08-25 13:00] VITALS: BP 130/58
[2017-08-25 16:44] VITALS: BP 82/33
== END 2017-08-25 19:45 | disposition home health service (06) | DRG 56 ==
LOC: EDBD 14:52 → ER 14:52 → OVERFLOW 14:53 → CENTRAL 22:30
PROVIDERS: ADMIT Nurse Practitioner; ATTEND Internal Medicine
PROC: 0DH63UZ Insertion of Feeding Device into Stomach, Percutaneous Approach (ICD-10-PCS; principal; 2017-08-23 11:50)
DX: I69.391 Dysphagia following cerebral infarction (principal); E43 Unspecified severe protein-calorie malnutrition; E87.0 Hyperosmolality and hypernatremia; G10 Huntington's disease; B95.7 Other staphylococcus as the cause of diseases classified elsewhere; N39.0 Urinary tract infection, site not specified; F01.50 Vascular dementia, unspecified severity, without behavioral disturbance, psychotic disturbance, mood disturbance, and anxiety; R47.01 Aphasia; R13.10 Dysphagia, unspecified; I70.0 Atherosclerosis of aorta; I25.10 Atherosclerotic heart disease of native coronary artery without angina pectoris; R62.7 Adult failure to thrive; Z95.1 Presence of aortocoronary bypass graft; Z88.1 Allergy status to other antibiotic agents; Z91.040 Latex allergy status; Z79.899 Other long term (current) drug therapy; Z90.49 Acquired absence of other specified parts of digestive tract
CPT/HCPCS: 36415; 71010; 80053; 81001; 82040; 82962; 83735; 84100; 84478; 85025; 85610; 85730; 87081; 87086; 87088; 87186; 92610; 93005; 94761; 96360; C9113; J0690; J1956; J2250; J3480

== ENCOUNTER 2017-09-16 15:45 | Inpatient (IN) | payer OTHER ==
[2017-09-16] VITALS (7 sets, daily range): BP systolic 62–121; BP diastolic 27–68
[~2017-09-16] VITALS: Ht 149.9 cm; Wt 41.2 kg
[~2017-09-16 15:45] MED LIST changes: +NITR-48 PO
[2017-09-16] MEDS ORDERED: SODIUM CHLORIDE 0.9% 250 ML IV ONE (16:30)
[2017-09-16] MEDS ORDERED: Isosource 1.5 Cal 1 Liter GT SCH ×2 (17:00→18:00)
[2017-09-16] MEDS ORDERED: SODIUM CHLORIDE 0.9% 1,000 ML IV ONE (17:00)
[2017-09-16] MEDS: PIPERACILLIN-TAZOB 3.375GM 50 ML IV SCH ×2 (18:14→23:23)
[2017-09-16 18:16] LABS: Basophils # (auto) 0.1 uL; Basophils % (auto) 0.5 % (0.0-2.0); Eosinophils # (auto) 0.2 uL; Eosinophils % (auto) 1.9 % (0.0-7.0); Hematocrit 36.7 % (36.0-46.0); Hemoglobin 12.2 g/dL (12.2-16.2); Lymphocytes # (auto) 3.4 uL; Mean Corpuscular Hemoglobin 30.3 pg (28.0-32.0); Mean Corpuscular Hgb Conc. 33.2 g/dL (32.0-36.0); Mean Corpuscular Volume 91.2 fL (80.0-100.0); Mean Platelet Volume 8.6 fL (6.9-10.8); Monocytes # (auto) 1.1 uL; Monocytes % (auto) 9.5 % (0.0-12.0); Neutrophils # (auto) 6.7 uL; Neutrophils % (auto) 58.1 % (37.0-80.0); Nucleated Red Blood Cells % 0.1 %; Platelet Count (auto) 330 10^3/uL (140-450); Red Cell Distribution Width 15.1 % (11.8-14.3); White Blood Cell 11.4 10^3/uL (4.4-10.8)
[2017-09-16 18:38] LABS: Albumin 2.4 g/dL (3.4-5.0); BUN/Creatinine Ratio 28.3; Bilirubin, Total 0.2 mg/dL (0.2-1.0); Calcium 7.9 mg/dL (8.5-10.1); Potassium 4.4 mmol/L (3.5-5.1); Total Protein 5.6 g/dL (6.4-8.2)
[2017-09-17] VITALS (7 sets, daily range): BP systolic 84–96; BP diastolic 54–64
[2017-09-17] MEDS: IPRATROPIUM BROM 0.5 MG/2.5ML INH SOL NEB SCH ×2 (00:05→18:35)
[2017-09-17] MEDS: PIPERACILLIN-TAZOB 3.375GM 50 ML IV SCH ×4 (05:40→23:16)
[2017-09-17] MEDS: PARoxetine 20 MG TAB PO SCH (10:07)
[2017-09-17] MEDS ORDERED: SODIUM CHLORIDE 0.9% 1,000 ML IV ONE (12:15)
[2017-09-17 16:03] LABS: Urine Bilirubin Negative (Negative); Urine Blood Negative /uL (Negative); Urine Color Yellow (Yellow); Urine Glucose Normal (Normal); Urine Ketone Negative (Negative); Urine Nitrite Negative (Negative); Urine RBC <1 /hpf (0 - 4); Urine Squamous Epithelial Cell FEW /hpf (<5); Urine Urobilinogen Normal (Negative); Urine pH 7.5 (5.0-8.0)
[2017-09-17] MEDS: ALBUTEROL SULF 2.5 MG/0.5ML(0.5%) NEB SOLN NEB PRN (18:35)
[2017-09-18] MEDS: IPRATROPIUM BROM 0.5 MG/2.5ML INH SOL NEB SCH ×3 (00:25→13:38)
[2017-09-18] MEDS: ALBUTEROL SULF 2.5 MG/0.5ML(0.5%) NEB SOLN NEB PRN ×3 (00:25→13:38)
[2017-09-18 03:26] VITALS: BP 84/54
[2017-09-18 05:00] VITALS: BP 91/52
[2017-09-18] MEDS: PIPERACILLIN-TAZOB 3.375GM 50 ML IV SCH ×3 (05:31→18:00)
[2017-09-18 09:00] VITALS: BP 82/52
[2017-09-18] MEDS: PARoxetine 20 MG TAB PO SCH (09:28)
[2017-09-18 10:03] VITALS: BP 94/54
[2017-09-18 13:00] VITALS: BP 100/57
== END 2017-09-18 18:37 | disposition home or self-care (01) | DRG 177 ==
LOC: TELE-EAST 15:45
PROVIDERS: ADMIT Internal Medicine; ATTEND Family Medicine
DX: J69.0 Pneumonitis due to inhalation of food and vomit (principal); J96.90 Respiratory failure, unspecified, unspecified whether with hypoxia or hypercapnia; E43 Unspecified severe protein-calorie malnutrition; G10 Huntington's disease; F03.90 Unspecified dementia, unspecified severity, without behavioral disturbance, psychotic disturbance, mood disturbance, and anxiety; R47.01 Aphasia; Z68.1 Body mass index [BMI] 19.9 or less, adult; I25.10 Atherosclerotic heart disease of native coronary artery without angina pectoris; Z93.1 Gastrostomy status; Z95.1 Presence of aortocoronary bypass graft; Z90.49 Acquired absence of other specified parts of digestive tract
CPT/HCPCS: 36415; 71010; 80053; 81001; 85025; 87081; 94640; 97163; J2543

== ENCOUNTER 2017-10-29 18:33 | Emergency (ER) | payer OTHER ==
[~2017-10-29] VITALS: Ht 157.5 cm; Wt 45.4 kg
[2017-10-29] MEDS ORDERED: LEVOFLOXACIN 250 MG TAB PO ONE (21:45)
[2017-10-29] MEDS ORDERED: PROMETHAZINE W/CODEINE 5 ML ORAL SYRUP PO ONE (21:45)
[2017-10-29 22:58] VITALS: BP 102/67
[2017-10-30] MEDS ORDERED: ACETAMINOPHEN 325 MG TAB PO ONE (00:37)
== END 2017-10-29 21:48 | disposition home or self-care (01) ==
LOC: EDBD 18:33 → ER 18:33
DX: J06.9 Acute upper respiratory infection, unspecified (principal); G10 Huntington's disease
CPT/HCPCS: 71010; 93005

== ENCOUNTER 2017-11-11 01:48 | Inpatient (IN) | payer OTHER ==
[~2017-11-11] VITALS: Ht 149.9 cm; Wt 42.6 kg
[2017-11-11 07:18] LABS: Basophils # (auto) 0 uL; Basophils % (auto) 0.4 % (0.0-2.0); Eosinophils # (auto) 0.1 uL; Eosinophils % (auto) 1.2 % (0.0-7.0); Hematocrit 40.7 % (36.0-46.0); Hemoglobin 13.7 g/dL (12.2-16.2); Lymphocytes # (auto) 3.1 uL; Mean Corpuscular Hemoglobin 30.6 pg (28.0-32.0); Mean Corpuscular Hgb Conc. 33.7 g/dL (32.0-36.0); Monocytes # (auto) 0.8 uL; Neutrophils # (auto) 4.5 uL; Neutrophils % (auto) 52.4 % (37.0-80.0); Platelet Count (auto) 312 10^3/uL (140-450); Red Blood Cells 4.48 10^6/uL (4.0-5.20); Red Cell Distribution Width 13.9 % (11.8-14.3); White Blood Cell 8.5 10^3/uL (4.4-10.8)
[2017-11-11 07:24] LABS: INR 0.95 (0.9-1.15); Partial Thromboplastin Time 27.3 sec (22.64-33.71); Prothrombin Time 10.4 sec (9.37-12.3)
[2017-11-11 07:46] LABS: Albumin 2.6 g/dL (3.4-5.0); Bilirubin, Total 0.3 mg/dL (0.2-1.0); Magnesium 2.3 mg/dL (1.6-2.6); Total Protein 5.9 g/dL (6.4-8.2)
[2017-11-11 07:47] LABS: Calcium 8.4 mg/dL (8.5-10.1); Potassium 3.8 mmol/L (3.5-5.1)
[2017-11-11 10:44] LABS: Urine Bacteria None Seen /hpf (None Seen); Urine WBC None Seen /hpf (0 - 5)
[2017-11-11 11:11] LABS: Urine Specific Gravity 1.011 (1.001-1.035)
[2017-11-11 11:12] LABS: Urine Blood Negative /uL (Negative)
[2017-11-11 11:15] LABS: Urine Amorphous Crystal Few /hpf (None Seen)
[2017-11-11] MEDS ORDERED: MORPHINE SULFATE 10 MG/ML INJ 1ML SDV IV PRN (13:00)
[2017-11-11] MEDS ORDERED: PROMETHAZINE HCL 25 MG/ML 1ML IV PRN (13:00)
[2017-11-11] MEDS ORDERED: HYDROcodone-ACET 5/325MG TAB GT PRN (13:00)
[2017-11-11] MEDS ORDERED: ALBUTEROL SULF 2.5 MG/0.5ML(0.5%) NEB SOLN NEB PRN (13:00)
[2017-11-11] MEDS ORDERED: LORazepam 2MG/ML-1ML VIAL IV PRN (13:00)
[2017-11-11] MEDS ORDERED: OSELTAMIVIR 30 MG CAP PO ONE (13:00)
[2017-11-11] MEDS: SODIUM CHLORIDE 0.9% 1,000 ML IV SCH (15:11)
[2017-11-11] MEDS: DOXYCYCLINE HYC 100MG/250ML 250 ML IV SCH (15:11)
[2017-11-11] MEDS: ALBUTEROL SULF 2.5 MG/0.5ML(0.5%) NEB SOLN NEB SCH ×2 (18:00→23:55)
[2017-11-11 20:28] VITALS: BP 108/74
[2017-11-11 20:48] VITALS: BP 93/57
[2017-11-11 22:00] VITALS: BP 98/61
[2017-11-11] MEDS ORDERED: OSELTAMIVIR 30 MG CAP PO SCH (22:00)
[2017-11-12] MEDS: DOXYCYCLINE HYC 100MG/250ML 250 ML IV SCH ×2 (01:19→13:20)
[2017-11-12] MEDS: SODIUM CHLORIDE 0.9% 1,000 ML IV SCH ×2 (02:25→10:03)
[2017-11-12] MEDS: ALBUTEROL SULF 2.5 MG/0.5ML(0.5%) NEB SOLN NEB SCH ×3 (05:54→19:33)
[2017-11-12 06:00] VITALS: BP 102/59
[2017-11-12 09:00] VITALS: BP 75/53
[2017-11-12] MEDS: ENOXAPARIN SOD 40 MG/0.4 ML SYRINGE SC SCH (09:55)
[2017-11-12] MEDS ORDERED: SODIUM CHLORIDE 0.9% 500 ML IV ONE (11:30)
[2017-11-12] MEDS ORDERED: Isosource 1.5 Cal 1 Liter GT SCH (13:00)
[2017-11-12 13:07] VITALS: BP 83/51
[2017-11-12 17:00] VITALS: BP 80/50
[2017-11-12 22:00] VITALS: BP 78/39
[2017-11-13] MEDS ORDERED: ACETAMINOPHEN 325 MG TAB PO PRN ×2 (00:15)
[2017-11-13] MEDS: ALBUTEROL SULF 2.5 MG/0.5ML(0.5%) NEB SOLN NEB SCH ×4 (00:35→18:29)
[2017-11-13] MEDS: DOXYCYCLINE HYC 100MG/250ML 250 ML IV SCH ×2 (01:06→15:02)
[2017-11-13] MEDS: SODIUM CHLORIDE 0.9% 1,000 ML IV SCH ×2 (04:58→18:42)
[2017-11-13 05:00] VITALS: BP 105/59
[2017-11-13 09:00] VITALS: BP 105/47
[2017-11-13] MEDS: ENOXAPARIN SOD 40 MG/0.4 ML SYRINGE SC SCH (11:41)
[2017-11-13 13:38] VITALS: BP 100/50
[2017-11-13 17:00] VITALS: BP 98/54
[2017-11-13 22:00] VITALS: BP 119/76
[2017-11-14] MEDS: ALBUTEROL SULF 2.5 MG/0.5ML(0.5%) NEB SOLN NEB SCH ×3 (00:16→11:48)
[2017-11-14] MEDS: DOXYCYCLINE HYC 100MG/250ML 250 ML IV SCH ×2 (01:31→15:01)
[2017-11-14 05:00] VITALS: BP 114/65
[2017-11-14] MEDS: SODIUM CHLORIDE 0.9% 1,000 ML IV SCH (08:22)
[2017-11-14 09:00] VITALS: BP 92/48
[2017-11-14] MEDS: ENOXAPARIN SOD 40 MG/0.4 ML SYRINGE SC SCH (09:30)
[2017-11-14 10:51] LABS: Basophils # (auto) 0 uL; Basophils % (auto) 0.6 % (0.0-2.0); Eosinophils # (auto) 0.3 uL; Eosinophils % (auto) 3.8 % (0.0-7.0); Hematocrit 30.5 % (36.0-46.0); Hemoglobin 10.4 g/dL (12.2-16.2); Lymphocytes # (auto) 1.5 uL; Lymphocytes % (auto) 21.3 % (10.0-50.0); Mean Corpuscular Hemoglobin 31.4 pg (28.0-32.0); Mean Corpuscular Hgb Conc. 33.9 g/dL (32.0-36.0); Mean Corpuscular Volume 92.6 fL (80.0-100.0); Monocytes # (auto) 0.8 uL; Monocytes % (auto) 11.2 % (0.0-12.0); Neutrophils # (auto) 4.4 uL; Neutrophils % (auto) 63.1 % (37.0-80.0); Nucleated Red Blood Cells % 0.1 %; Platelet Count (auto) 305 10^3/uL (140-450); Red Cell Distribution Width 13.8 % (11.8-14.3)
[2017-11-14 11:18] LABS: Albumin 2.1 g/dL (3.4-5.0); BUN/Creatinine Ratio 32.3; Bilirubin, Total 0.2 mg/dL (0.2-1.0); Calcium 7.1 mg/dL (8.5-10.1); Potassium 3.4 mmol/L (3.5-5.1); Total Protein 4.6 g/dL (6.4-8.2)
[2017-11-14 13:00] VITALS: BP 100/52
[2017-11-14 15:24] VITALS: BP 100/52
== END 2017-11-14 16:25 | disposition home health service (06) | DRG 193 ==
LOC: EDBD 01:48 → ER 01:56 → TELE 01:57 → WEST WING 20:07
PROVIDERS: ADMIT Internal Medicine; ATTEND Internal Medicine Pulmonary Disease
DX: J18.9 Pneumonia, unspecified organism (principal); E43 Unspecified severe protein-calorie malnutrition; G10 Huntington's disease; F03.90 Unspecified dementia, unspecified severity, without behavioral disturbance, psychotic disturbance, mood disturbance, and anxiety; J44.0 Chronic obstructive pulmonary disease with (acute) lower respiratory infection; Z68.1 Body mass index [BMI] 19.9 or less, adult; E87.6 Hypokalemia; I70.0 Atherosclerosis of aorta; I25.10 Atherosclerotic heart disease of native coronary artery without angina pectoris; R62.7 Adult failure to thrive; Z90.49 Acquired absence of other specified parts of digestive tract; Z95.1 Presence of aortocoronary bypass graft
CPT/HCPCS: 36415; 36600; 51702; 71045; 80053; 81001; 82805; 83735; 84484; 85025; 85610; 85730; 87081; 87400; 93005; 94640; 97163; G9035; J3490

== ENCOUNTER 2018-04-15 14:28 | Emergency (ER) | payer OTHER, MEDICAID ==
[2018-04-15 14:49] VITALS: BP 102/63
[2018-04-15] MEDS ORDERED: FLEET ENEMA(ADULT) 135 ML PR ONE (15:45)
== END 2018-04-15 17:42 | disposition home or self-care (01) ==
LOC: ER 14:28
DX: K56.41 Fecal impaction (principal); E07.89 Other specified disorders of thyroid; Z88.2 Allergy status to sulfonamides; Z91.040 Latex allergy status; Z88.8 Allergy status to other drugs, medicaments and biological substances
CPT/HCPCS: 74018

== ENCOUNTER 2018-06-12 11:28 | Emergency (ER) | payer MEDICARE, MEDICAID ==
[~2018-06-12] VITALS: Ht 149.9 cm; Wt 43.1 kg
[2018-06-12 13:24] VITALS: BP 99/53
== END 2018-06-12 14:01 | disposition home or self-care (01) ==
LOC: ER 11:28
DX: N20.0 Calculus of kidney (principal); N21.0 Calculus in bladder; G10 Huntington's disease; Z93.1 Gastrostomy status; Z88.1 Allergy status to other antibiotic agents; Z88.2 Allergy status to sulfonamides; Z91.040 Latex allergy status; Z90.49 Acquired absence of other specified parts of digestive tract
CPT/HCPCS: 74176

== ENCOUNTER 2018-07-20 09:58 | Emergency (ER) | payer MEDICARE, MEDICAID ==
[~2018-07-20] VITALS: Ht 152.4 cm; Wt 44.5 kg
[~2018-07-20 09:58] MED LIST changes: -NITR-48 PO; +NITR100C44 PO
[2018-07-20] MEDS ORDERED: GASTROGRAFIN 30 ML SOL ONE (10:44)
[2018-07-20 11:24] VITALS: BP 109/71
[2018-07-20] MEDS ORDERED: BACITRACIN TOP OINT 1 UD PKG TOP ONE (12:15)
== END 2018-07-20 12:32 | disposition home or self-care (01) ==
LOC: ER 09:58
DX: G10 Huntington's disease (principal); I10 Essential (primary) hypertension; Z43.1 Encounter for attention to gastrostomy; Z87.440 Personal history of urinary (tract) infections; Z90.49 Acquired absence of other specified parts of digestive tract
CPT/HCPCS: 74247; 99284; Q9963

== ENCOUNTER 2018-07-25 09:16 | Inpatient (IN) | payer MEDICARE, MEDICAID ==
[~2018-07-25] VITALS: Ht 152.4 cm; Wt 40.5 kg
[2018-07-25] MEDS ORDERED: SODIUM CHLORIDE 0.9% 500 ML IV ONE (09:42)
[2018-07-25 10:11] LABS: Basophils # (auto) 0 uL; Basophils % (auto) 0.5 % (0.0-2.0); Eosinophils # (auto) 0.5 uL; Hematocrit 45.3 % (36.0-46.0); Hemoglobin 14.6 g/dL (12.2-16.2); Lymphocytes # (auto) 2.2 uL; Lymphocytes % (auto) 27.9 % (10.0-50.0); Mean Corpuscular Hemoglobin 29.5 pg (28.0-32.0); Mean Corpuscular Hgb Conc. 32.2 g/dL (32.0-36.0); Mean Corpuscular Volume 91.5 fL (80.0-100.0); Monocytes # (auto) 0.7 uL; Neutrophils # (auto) 4.5 uL; Neutrophils % (auto) 56.6 % (37.0-80.0); Nucleated Red Blood Cells % 0.1 %; Platelet Count (auto) 347 10^3/uL (140-450); Red Blood Cells 4.95 10^6/uL (4.0-5.20); Red Cell Distribution Width 13.5 % (11.8-14.3)
[2018-07-25 10:27] LABS: Albumin 3.1 g/dL (3.4-5.0); BUN/Creatinine Ratio 18.6; Bilirubin, Total 0.3 mg/dL (0.2-1.0); Calcium 9.4 mg/dL (8.5-10.1); Potassium 4.5 mmol/L (3.5-5.1); Total Protein 7.7 g/dL (6.4-8.2)
[2018-07-25] MEDS: SODIUM CHLORIDE 0.9% 1,000 ML IV SCH ×2 (10:27→20:37)
[2018-07-25] MEDS ORDERED: LORazepam 2MG/ML-1ML VIAL IV PRN (10:30)
[2018-07-25] MEDS ORDERED: MORPHINE SULFATE 4 MG/ML SYR/VIAL IV PRN ×3 (10:30)
[2018-07-25] MEDS ORDERED: ONDANSETRON HCL 4 MG/2 ML VIAL IV PRN (10:30)
[2018-07-25] MEDS ORDERED: NITROGLYCERIN 0.4 MG SL TAB SL PRN (10:30)
[2018-07-25 10:34] LABS: INR 0.93 (0.9-1.15); Partial Thromboplastin Time 28.5 sec (23.78-33.04)
[2018-07-25] MEDS: FAMOTIDINE (10MG/ML) 2ML VL IV SCH (12:02)
[2018-07-25 21:30] VITALS: BP 109/68
[2018-07-25 22:00] VITALS: BP 109/68
[2018-07-26] MEDS ORDERED: LEVO75TA6 PO (01:18)
[2018-07-26] MEDS ORDERED: LEV50T PO (01:18)
[2018-07-26 05:00] VITALS: BP 127/83
[2018-07-26] MEDS: SODIUM CHLORIDE 0.9% 1,000 ML IV SCH (05:58)
[2018-07-26 08:00] VITALS: BP 106/66
[2018-07-26 09:00] VITALS: BP 106/66
[2018-07-26] MEDS ORDERED: SODIUM CHLORIDE LOCK 10 ML ONE (09:59)
[2018-07-26] MEDS ORDERED: diphenhdrAMINE HCL 50 MG/1 ML VL ONE (09:59)
[2018-07-26] MEDS ORDERED: LIDOCAINE VISCOUS 2% 15ML UD ONE (09:59)
[2018-07-26] MEDS: FAMOTIDINE (10MG/ML) 2ML VL IV SCH (10:12)
[2018-07-26] MEDS: D5W/SOD CHL 0.45%/KCL 20MEQ 1,000 ML IV SCH ×2 (10:18→22:48)
[2018-07-26] MEDS ORDERED: ceFAZolin 1GM/50ML 50 ML IV ONE (13:24)
[2018-07-26] MEDS: MIDAZOLAM HCL 5 MG/ML-1ML VIAL ONE ×2 (13:36→13:41)
[2018-07-26] MEDS: fentaNYL CITRATE 100 MCG/2 ML VL ONE ×2 (13:36→13:41)
[2018-07-26 17:00] VITALS: BP 102/68
[2018-07-26 21:48] VITALS: BP 95/72
[2018-07-27 05:12] VITALS: BP 137/67
[2018-07-27] MEDS: ENSURE CLEAR Apple 8oz Carton PO SCH ×2 (06:00→12:00)
[2018-07-27 08:00] VITALS: BP 92/51
[2018-07-27 10:13] VITALS: BP 92/51
[2018-07-27] MEDS: FAMOTIDINE (10MG/ML) 2ML VL IV SCH (10:39)
[2018-07-27] MEDS: D5W/SOD CHL 0.45%/KCL 20MEQ 1,000 ML IV SCH (12:25)
[2018-07-27 13:00] VITALS: BP 94/56
== END 2018-07-27 14:00 | disposition home or self-care (01) | DRG 394 ==
LOC: ER 09:18 → OVERFLOW 09:19 → CENTRAL 21:30
PROVIDERS: ADMIT Internal Medicine; ATTEND Internal Medicine
PROC: 0DP68UZ Removal of Feeding Device from Stomach, Via Natural or Artificial Opening Endoscopic (ICD-10-PCS; 2018-07-26)
PROC: 0DHA3UZ Insertion of Feeding Device into Jejunum, Percutaneous Approach (ICD-10-PCS; principal; 2018-07-26 13:28)
DX: K94.23 Gastrostomy malfunction (principal); G10 Huntington's disease; I25.10 Atherosclerotic heart disease of native coronary artery without angina pectoris; F03.90 Unspecified dementia, unspecified severity, without behavioral disturbance, psychotic disturbance, mood disturbance, and anxiety; Z95.1 Presence of aortocoronary bypass graft; E03.9 Hypothyroidism, unspecified; I10 Essential (primary) hypertension; K29.70 Gastritis, unspecified, without bleeding; I73.9 Peripheral vascular disease, unspecified; K44.9 Diaphragmatic hernia without obstruction or gangrene; Z74.01 Bed confinement status; Z88.1 Allergy status to other antibiotic agents; Z88.8 Allergy status to other drugs, medicaments and biological substances; Z88.2 Allergy status to sulfonamides; Z91.040 Latex allergy status; Z79.899 Other long term (current) drug therapy; Z90.49 Acquired absence of other specified parts of digestive tract
CPT/HCPCS: 36415; 43246; 80053; 84443; 85025; 85610; 85730; 87081; 94761; 96361; 96374; 96375; A6257; J0690; J2250; J3490

== ENCOUNTER 2019-02-02 05:53 | Inpatient (IN) | payer MEDICARE, MEDICAID | END 2019-02-09 13:39 | disposition home or self-care (01) | LOC: ER 05:53 → OVERFLOW 10:23 → WEST WING 12:30 | PROC: 0DB78ZX Excision of Stomach, Pylorus, Via Natural or Artificial Opening Endoscopic, Diagnostic (ICD-10-PCS; principal; 2019-02-04 12:45) | PROC: 0DH63UZ Insertion of Feeding Device into Stomach, Percutaneous Approach (ICD-10-PCS; 2019-02-04 12:45) | DX: Z43.1 Encounter for attention to gastrostomy (principal); S06.5X9A Traumatic subdural hemorrhage with loss of consciousness of unspecified duration, initial encounter; J18.9 Pneumonia, unspecified organism; E43 Unspecified severe protein-calorie malnutrition ==

== ENCOUNTER 2019-10-22 11:37 | Emergency (ER) | payer MEDICARE, MEDICAID ==
[~2019-10-22] VITALS: Ht 160 cm; Wt 59.0 kg
[~2019-10-22 11:37] MED LIST changes: +CHOL20002 PO; +DEUT12TA PO; +LEVO25TA6 PO; -NITR100C44 PO; -PAR20T PO; -TETR12.5 PO
[2019-10-22 13:23] LABS: Basophils # (auto) 0.1 uL; Basophils % (auto) 0.5 % (0.0-2.0); Eosinophils # (auto) 0.4 uL; Eosinophils % (auto) 3.9 % (0.0-7.0); Hematocrit 45.9 % (36.0-46.0); Hemoglobin 14.9 g/dL (12.2-16.2); Lymphocytes # (auto) 2.3 uL; Lymphocytes % (auto) 20.8 % (10.0-50.0); Mean Corpuscular Hemoglobin 30.8 pg (28.0-32.0); Mean Corpuscular Hgb Conc. 32.4 g/dL (32.0-36.0); Mean Corpuscular Volume 95.2 fL (80.0-100.0); Monocytes # (auto) 0.9 uL; Monocytes % (auto) 7.7 % (0.0-12.0); Neutrophils # (auto) 7.5 uL; Neutrophils % (auto) 67.1 % (37.0-80.0); Platelet Count (auto) 338 10^3/uL (140-450); Red Blood Cells 4.82 10^6/uL (4.0-5.20); White Blood Cell 11.1 10^3/uL (4.4-10.8)
[2019-10-22 13:38] LABS: INR 1.04 (0.9-1.15); Partial Thromboplastin Time 29.3 sec (23.64-32.05)
[2019-10-22 13:39] LABS: Alanine Aminotransferase 34 U/L (13-56); Anion Gap 8 (5-15); Aspartate Aminotransferase 29 U/L (15-37); Blood Urea Nitrogen 15 mg/dL (7-18); Calcium 8.9 mg/dL (8.5-10.1); Carbon Dioxide 25 mmol/L (21-32); Chloride 108 mmol/L (98-107); GFR African American 91 mL/min; GFR Non-African American 75 mL/min; Glucose 80 mg/dL (74-106); Sodium 141 mmol/L (136-145)
[2019-10-22 13:42] LABS: Alkaline Phosphatase 93 U/L (45-117); Bilirubin, Total 0.3 mg/dL (0.2-1.0); Total Protein 7.3 g/dL (6.4-8.2)
[2019-10-22 15:49] VITALS: BP 102/67
== END 2019-10-22 15:50 | disposition home or self-care (01) ==
LOC: EDBD 11:37 → ER 11:37
DX: S01.01XA Laceration without foreign body of scalp, initial encounter (principal); N39.0 Urinary tract infection, site not specified; Z90.49 Acquired absence of other specified parts of digestive tract; Z88.2 Allergy status to sulfonamides; Z88.6 Allergy status to analgesic agent; W19.XXXA Unspecified fall, initial encounter; Y93.89 Activity, other specified; Y99.8 Other external cause status; Y92.89 Other specified places as the place of occurrence of the external cause
CPT/HCPCS: 12001; 36415; 70450; 72125; 80053; 84484; 85025; 85610; 85730

== ENCOUNTER → 2021-06-24 | Outpatient (CLI) | payer OTHER | END | disposition home or self-care (01) | LOC: XYW 09:37 | PROVIDERS: ATTEND Internal Medicine | DX: I34.0 Nonrheumatic mitral (valve) insufficiency (principal); I51.7 Cardiomegaly; I70.90 Unspecified atherosclerosis | CPT/HCPCS: 93306 ==

== ENCOUNTER 2021-07-01 08:39 | Emergency (ER) | payer OTHER ==
[~2021-07-01] VITALS: Ht 149.9 cm; Wt 45.4 kg
[2021-07-01] MEDS ORDERED: SODIUM CHLORIDE 0.9% 1,000 ML IV ONE (10:00)
[2021-07-01 10:42] LABS: Basophils # (auto) 0.1 10 ^3/uL (0-0.2); Basophils % (auto) 1.2 % (0.0-2.0); Eosinophils # (auto) 0.2 10 ^3/uL (0-0.8); Eosinophils % (auto) 3.2 % (0.0-7.0); Lymphocytes # (auto) 2.4 10 ^3/uL (0.4-5.4); Lymphocytes % (auto) 30.5 % (10.0-50.0); Mean Corpuscular Hemoglobin 31.9 pg (28.0-32.0); Mean Corpuscular Hgb Conc. 34.8 g/dL (32.0-36.0); Mean Corpuscular Volume 91.9 fL (80.0-100.0); Monocytes # (auto) 0.7 10 ^3/uL (0-1.3); Monocytes % (auto) 8.4 % (0.0-12.0); Neutrophils # (auto) 4.4 10 ^3/uL (1.6-8.6); Neutrophils % (auto) 56.7 % (37.0-80.0); Nucleated Red Blood Cells % 0.1 %; Red Blood Cells 5.01 10^6/uL (4.0-5.20); Red Cell Distribution Width 13.2 % (11.8-14.3); White Blood Cell 7.8 10^3/uL (4.4-10.8)
[2021-07-01 10:59] LABS: INR 1.04 (0.9-1.15); Partial Thromboplastin Time 26.9 sec (23.6-33.0)
[2021-07-01 11:21] LABS: Albumin 3.2 g/dL (3.4-5.0); Anion Gap 5 (5-15); Blood Urea Nitrogen 13 mg/dL (7-18); Carbon Dioxide 26 mmol/L (21-32); Chloride 110 mmol/L (98-107); Glucose 74 mg/dL (74-106); Potassium 4.4 mmol/L (3.5-5.1); Sodium 141 mmol/L (136-145)
[2021-07-01 11:25] LABS: Alanine Aminotransferase 38 U/L (13-56); Alkaline Phosphatase 72 U/L (45-117); Aspartate Aminotransferase 35 U/L (15-37); BUN/Creatinine Ratio 14.8; Bilirubin, Total 0.4 mg/dL (0.2-1.0); GFR African American 80 mL/min; GFR Non-African American 66 mL/min; Total Protein 7.6 g/dL (6.4-8.2)
[2021-07-01] MEDS ORDERED: GASTROGRAFIN 30 ML SOL ONE (16:32)
[2021-07-01 17:15] VITALS: BP 101/65
== END 2021-07-01 17:37 | disposition home or self-care (01) ==
LOC: ER 08:39
DX: K94.23 Gastrostomy malfunction (principal); G10 Huntington's disease; Z90.49 Acquired absence of other specified parts of digestive tract; Z88.2 Allergy status to sulfonamides; Z88.8 Allergy status to other drugs, medicaments and biological substances
CPT/HCPCS: 36415; 43762; 74018; 80053; 84484; 85025; 85610; 85730; 99284; Q9963

== ENCOUNTER → 2021-12-22 | Outpatient (CLI) | payer OTHER ==
[2021-12-22 12:33] LABS: Basophils # (auto) 0.1 10 ^3/uL (0-0.2); Basophils % (auto) 0.9 % (0.0-2.0); Eosinophils # (auto) 0.5 10 ^3/uL (0-0.8); Eosinophils % (auto) 6.3 % (0.0-7.0); Hemoglobin 14.6 g/dL (12.2-16.2); Lymphocytes # (auto) 2.3 10 ^3/uL (0.4-5.4); Lymphocytes % (auto) 30.8 % (10.0-50.0); Mean Corpuscular Hemoglobin 31.4 pg (28.0-32.0); Mean Corpuscular Volume 92.3 fL (80.0-100.0); Monocytes # (auto) 0.9 10 ^3/uL (0-1.3); Monocytes % (auto) 12.8 % (0.0-12.0); Neutrophils # (auto) 3.6 10 ^3/uL (1.6-8.6); Neutrophils % (auto) 49.2 % (37.0-80.0); Nucleated Red Blood Cells % 0.1 %; Red Blood Cells 4.66 10^6/uL (4.0-5.20); Red Cell Distribution Width 13.1 % (11.8-14.3); White Blood Cell 7.4 10^3/uL (4.4-10.8)
[2021-12-22 12:59] LABS: Potassium 4.7 mmol/L (3.5-5.1)
[2021-12-22 13:06] LABS: Albumin 3.1 g/dL (3.4-5.0); BUN/Creatinine Ratio 16.5; Bilirubin, Total 0.3 mg/dL (0.2-1.0); Calcium 9.3 mg/dL (8.5-10.1)
== END | disposition home or self-care (01) ==
LOC: LAB 10:28
PROVIDERS: ATTEND Internal Medicine
DX: E55.9 Vitamin D deficiency, unspecified (principal); E07.9 Disorder of thyroid, unspecified; G10 Huntington's disease
CPT/HCPCS: 36415; 80053; 80061; 82306; 83036; 85025

== ENCOUNTER 2022-02-13 10:58 | Emergency (ER) | payer MEDICAID, MEDICARE, OTHER ==
[~2022-02-13] VITALS: Ht 149.9 cm; Wt 49.9 kg
[2022-02-13 13:14] LABS: Basophils # (auto) 0 10 ^3/uL (0-0.2); Basophils % (auto) 0.7 % (0.0-2.0); Eosinophils # (auto) 0.2 10 ^3/uL (0-0.8); Eosinophils % (auto) 2.9 % (0.0-7.0); Hematocrit 43.1 % (36.0-46.0); Hemoglobin 14.6 g/dL (12.2-16.2); Lymphocytes # (auto) 2.7 10 ^3/uL (0.4-5.4); Lymphocytes % (auto) 36.8 % (10.0-50.0); Mean Corpuscular Hemoglobin 32.1 pg (28.0-32.0); Mean Corpuscular Volume 94.6 fL (80.0-100.0); Monocytes # (auto) 0.6 10 ^3/uL (0-1.3); Monocytes % (auto) 8.5 % (0.0-12.0); Neutrophils # (auto) 3.8 10 ^3/uL (1.6-8.6); Neutrophils % (auto) 51.1 % (37.0-80.0); Nucleated Red Blood Cells % 0.1 %; Red Blood Cells 4.56 10^6/uL (4.0-5.20); Red Cell Distribution Width 13.2 % (11.8-14.3); White Blood Cell 7.4 10^3/uL (4.4-10.8)
[2022-02-13 13:24] LABS: Alanine Aminotransferase 42 U/L (13-56); Albumin 2.8 g/dL (3.4-5.0); Anion Gap 8 (5-15); Aspartate Aminotransferase 32 U/L (15-37); BUN/Creatinine Ratio 14.4; Blood Urea Nitrogen 13 mg/dL (7-18); Calcium 8.8 mg/dL (8.5-10.1); Carbon Dioxide 25 mmol/L (21-32); Chloride 110 mmol/L (98-107); GFR African American 78 mL/min; GFR Non-African American 64 mL/min; Glucose 80 mg/dL (74-106); Potassium 4.2 mmol/L (3.5-5.1); Sodium 143 mmol/L (136-145)
[2022-02-13 13:27] LABS: Alkaline Phosphatase 68 U/L (45-117); Bilirubin, Total 0.3 mg/dL (0.2-1.0); Total Protein 6.6 g/dL (6.4-8.2)
[2022-02-13] MEDS ORDERED: GASTROGRAFIN 30 ML SOL ONE (13:31)
[2022-02-13 14:57] VITALS: BP 126/65
== END 2022-02-13 14:59 | disposition home or self-care (01) ==
LOC: ER 10:58
DX: Z46.59 Encounter for fitting and adjustment of other gastrointestinal appliance and device (principal); Z90.49 Acquired absence of other specified parts of digestive tract; Z88.1 Allergy status to other antibiotic agents; Z88.6 Allergy status to analgesic agent
CPT/HCPCS: 36415; 43762; 74018; 80053; 85025; 99284; Q9963

== ENCOUNTER → 2022-04-11 | Outpatient (CLI) | payer OTHER | END | disposition home or self-care (01) | LOC: XYW 09:44 | PROVIDERS: ATTEND Internal Medicine | DX: I08.0 Rheumatic disorders of both mitral and aortic valves (principal); I34.0 Nonrheumatic mitral (valve) insufficiency | CPT/HCPCS: 93306 ==